=== PATIENT | male | born 1960 | race Caucasian/White ===

== ENCOUNTER 2021-04-29 14:47 | Emergency (ER) | payer OTHER ==
[~2021-04-29] VITALS: Ht 167.6 cm; Wt 103.4 kg
[2021-04-29 15:06] VITALS: BP 171/77
--- NOTE | 2021-04-29 15:14 | NUR ---
PA NEWTON EVALUATING PT IN [facility]
[2021-04-29] MEDS ORDERED: KETOROLAC 30 MG/ML VIAL IM ONE (15:15)
[2021-04-29] MEDS ORDERED: HYDROcodone/APAP 5/325 MG 1 TAB TAB PO ONE (15:15)
--- NOTE | 2021-04-29 15:42 | NUR ---
Patient ambulated to bed 4 with family. RN evaluating the patient at bedside.
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
--- NOTE | 2021-04-29 16:31 | NUR ---
I.S. DONE 2300 X 10 TIME. EDUCATED PATIENT ON HOW TO USE AND HOW OFTEN AND ALSO THE BENEFIT OF USING IT. MD NEWTON AT BEDSIDE.
[2021-04-29] MEDS ORDERED: IBUP-2213 PO (16:33)
[2021-04-29] MEDS ORDERED: ACET-8386 PO (16:33)
[2021-04-29 16:50] VITALS: BP 171/77
--- NOTE | 2021-04-29 16:50 | NUR ---
Patient discharged with v/s stable. Written and verbal after care instructions given and explained. Patient alert, oriented and verbalized understanding of instructions. Ambulatory with steady gait. All questions addressed prior to discharge. ID band removed. Patient advised to follow up with PMD. Rx of NORCO, IBUPROFEN given. Patient educated on indication of medication including possible reaction and side effects. Opportunity to ask questions provided and answered.
== END 2021-04-29 16:50 | disposition home or self-care (01) ==
LOC: MED 14:47
DX: S22.32XA Fracture of one rib, left side, initial encounter for closed fracture (principal); M79.10 Myalgia, unspecified site; R03.0 Elevated blood-pressure reading, without diagnosis of hypertension; Z79.899 Other long term (current) drug therapy; V87.8XXA Person injured in other specified noncollision transport accidents involving motor vehicle (traffic), initial encounter; Y93.89 Activity, other specified; Y92.89 Other specified places as the place of occurrence of the external cause; Y99.8 Other external cause status
CPT/HCPCS: 71101; 96372; 99283; J1885